=== PATIENT | female | born 1960 | race Caucasian/White ===

== ENCOUNTER → 2017-01-17 | Outpatient (CLI) | payer BC ==
--- NOTE | 2017-01-24 07:49 | RADIOLOGY REPORT PS360 ---
DIG MAMM-SCREEN JIM W/CAD CAD Screening COMPARISON: Digital mammograms 07/28/2015 and 05/30/2014 INDICATION: There is a history of breast cancer in patient's maternal aunt diagnosed after menopause TECHNIQUE: Standard CC and MLO images were obtained. R2 CAD reviewed. FINDINGS: There is almost complete fatty replacement of breast parenchyma bilaterally with minimal scattered fibroglandular densities noted. There are couple benign-appearing calcifications left breast. There is no suspicious lesion and no suspicious microcalcifications. IMPRESSION: Fatty type breast parenchyma with no suspicious lesion seen recommend yearly follow-up BI-RADS CATEGORY: 2_Benign RECOMMENDED FOLLOWUP: 12M 12 MONTH FOLLOW-UP (A letter has been sent to the patient regarding results of the study.)
== END ==
LOC: RAD 09:54
DX: Z12.31 Encounter for screening mammogram for malignant neoplasm of breast (principal)
CPT/HCPCS: G0202